=== PATIENT | female | born 1955 | race Caucasian/White ===

== ENCOUNTER 2023-08-12 16:38 | Emergency (ER) | payer MEDICARE ==
[2023-08-12] MEDS ORDERED: Ondansetron ODT 4 MG TAB ONE (17:41)
== END 2023-08-12 18:58 | disposition home or self-care (01) ==
LOC: NAV ERS 16:38
DX: S06.301A Unspecified focal traumatic brain injury with loss of consciousness of 30 minutes or less, initial encounter (principal); S22.32XA Fracture of one rib, left side, initial encounter for closed fracture; E03.9 Hypothyroidism, unspecified; W18.30XA Fall on same level, unspecified, initial encounter
CPT/HCPCS: 70450; 72125; 72131; Q0162